=== PATIENT | female | born 1960 | race Caucasian/White ===

== ENCOUNTER 2021-08-02 09:57 | Emergency (ER) | payer SELFPAY ==
[2021-08-02 11:30] VITALS: BP 156/81
== END 2021-08-02 11:35 | disposition left against medical advice (07) | DRG 951 ==
LOC: ED 09:57 → LWOBS 11:34 → ED 11:34 → LWOBS 11:35
DX: Z53.21 Procedure and treatment not carried out due to patient leaving prior to being seen by health care provider (principal)